=== PATIENT | male | born 1980 | race Caucasian/White ===

== ENCOUNTER 2020-08-08 14:00 | Outpatient (CLI) | payer MEDICARE, OTHER ==
[~2020-08-08] VITALS: Ht 181.6 cm; Wt 143.1 kg
[~2020-08-08 14:00] MED LIST: GEODON60 MG PO; ZYPREXA10 MG PO
[2020-08-08 15:01] VITALS: BP 142/88; PULSE 90; TEMP 98.2
[2020-08-08] MEDS ORDERED: PEPCID 20MG TAB20 MG PO (15:27)
[2020-08-08] MEDS ORDERED: CRESTOR20 MG PO (15:28)
[2020-08-08] MEDS ORDERED: GLUCOPHAGE1000 MG PO (15:28)
[2020-08-08] MEDS ORDERED: FLOMAX 0.40.4 MG/CAP PO (15:28)
[2020-08-08 15:31] VITALS: BP 138/90; PULSE 91
[2020-08-08 16:00] VITALS: PULSE 90; TEMP 98.3
[2020-08-08 16:31] VITALS: BP 149/103; PULSE 91; TEMP 98.3
[2020-08-08 17:15] VITALS: BP 137/95; PULSE 92; TEMP 98.1
== END 2020-08-08 17:27 | disposition home or self-care (01) ==
LOC: EUO 14:00
DX: J02.9 Acute pharyngitis, unspecified (principal); R19.8 Other specified symptoms and signs involving the digestive system and abdomen
CPT/HCPCS: J7050

== ENCOUNTER 2024-03-13 08:44 | Day surgery (SDC) | payer OTHER ==
[~2024-03-13] VITALS: Ht 182.9 cm; Wt 151.5 kg
[~2024-03-13 08:44] MED LIST changes: +COLACE 100100 MG/CAP PO; +CRESTOR20 MG PO; +DULOXETINE HCL40 MG PO; +FLOMAX 0.40.4 MG/CAP PO; +GLUCOPHAGE1000 MG PO; +LR 1,000 ML IV SCH; +Ondansetron 4 MG/2 ML VIAL IV PRN; +PEPCID 20MG TAB20 MG PO; +PROTONIX 40MG T40 MG PO; +ZYPREXA 5MG5 MG PO; +ZYPREXA20 MG PO
[2024-03-13 08:57] VITALS: BP 130/72; PULSE 55; TEMP 97
[2024-03-13] MEDS ORDERED: PEPCID 20MG TAB20 MG PO (09:08)
--- NOTE | 2024-03-13 09:31 | NUR ---
The patient ambulated back to [facility] [facility] independently using a steady gait and appeared to tolerate the activity well. Vital signs obtained. Consent signed. 20G IV started in right hand with one stick, LR Infusing without difficulty. Assessment completed. Home medications reconciled. Warm blanket provided. Denies any further needs at this time.
[2024-03-13] MEDS ORDERED: Lidocaine PF 2% (20 MG/ML) 5 ML VIAL ONE (09:47)
[2024-03-13 10:09] VITALS: BP 125/78; PULSE 58
[2024-03-13 10:25] VITALS: BP 126/88; PULSE 55
[2024-03-13 10:45] VITALS: BP 129/89; PULSE 57
--- NOTE | 2024-03-13 11:56 | NUR ---
1009 PATIENT RETURNS TO [facility] VIA CART. PT AWAKE AND ALERT. RESPIRATIONS UNLABORED. AMBULATED TO RECLINER CHAIR WITH 2:1 SBA. PT DENIES NAUSEA OR ABDOMINAL PAIN. HOOKED UP TO MONITOR AND VS OBTAINED. CALL LIGHT AT SIDE AND NO FAMILY PRESENT. 1015 PATIENT TOLERATING HOT TEA AND MUFFIN WITHOUT NAUSEA OR DIFFICULTY SWALLOWING (EGD ONLY). 1025 DR. LARA IN ROOM SPEAKING WITH PATIENT. 1035 D/C INSTRUCTIONS REVIEWED WITH PATIENT. PT VERBALIZED UNDERSTANDING AND A COPY OF INSTRUCTIONS PROVIDED IN D/C FOLDER. 1045 PATIENT DRESSES SELF. 1100 PATIENT DISCHARGED FROM UNIT VIA W/C TO A PERSONAL VEHICLE. PT LEFT HOSPITAL IN STABLE CONDITION.
== END 2024-03-13 11:00 | disposition home or self-care (01) ==
LOC: SDCO 08:44
DX: K21.9 Gastro-esophageal reflux disease without esophagitis (principal); K29.30 Chronic superficial gastritis without bleeding; G47.33 Obstructive sleep apnea (adult) (pediatric); E11.9 Type 2 diabetes mellitus without complications; E66.9 Obesity, unspecified; Z68.42 Body mass index [BMI] 45.0-49.9, adult
CPT/HCPCS: J2704; J7120